=== PATIENT | male | born 1960 | race African-American/Black ===

== ENCOUNTER 2017-11-03 11:52 | Emergency (ER) | payer OTHER ==
[2017-11-03 12:38] LABS: #Eosinphils 0.2 thou/uL (0.0-0.7); #Lymphocytes 1.4 thou/uL (1.20-3.40); #Monocytes 0.6 thou/uL (0.11-0.59); %Basophils 0.3 % (0.0-1.0); %Eosinophils 2.9 % (0.0-10.0); %Lymphocytes 23.1 % (21.0-51.0); %Monocytes 8.9 % (0.0-10.0); %Neutrophils 64.7 % (42.0-75.0); Hemoglobin 10.9 g/dL (14.0-18.0); Mean Corpuscular HGB CONC 33.7 g/dL (32.0-36.0); Mean Corpuscular Hemoglobin 31.3 pg (27.0-31.0); Mean Corpuscular Volume 92.8 fl (80.0-94.0); Mean Platelet Volume 7.5 fL (7.4-10.4); Platelet Count 165 thou/uL (130-400); RBC Distribution Width 12.1 % (11.5-14.5); Red Blood Cell (RBC) Count 3.47 mill/uL (4.70-6.10); White Blood Cell (WBC) Count 6.2 thou/uL (4.8-10.8)
[2017-11-03 12:59] LABS: ALT (SGPT) 8 U/L (8-55); AST (SGOT) 10 U/L (5-34); Albumin 3.3 g/dL (3.5-5.0); Alkaline Phosphatase 72 U/L (40-150); Anion Gap 11 mmol/L (10-20); BUN (Urea Nitrogen) 22 mg/dL (8.4-25.7); Bilirubin, Total 0.3 mg/dL (0.2-1.2); CK (CPK) 54 U/L (30-200); Calc. Creatinine Clearance 0 mL/min (70-130); Calcium 8.2 mg/dL (7.8-10.44); Carbon Dioxide 22 mmol/L (22-29); Chloride 110 mmol/L (98-107); Estimated GFR-MDRD 72; Globulin 2.8 g/dL (2.4-3.5); Glucose 81 mg/dL (70-105); Lipase 71 U/L (8-78); Potassium 3.5 mmol/L (3.5-5.1); Protein, Total 6.1 g/dL (6.0-8.3); Sodium 139 mmol/L (136-145)
[2017-11-03 13:02] LABS: Troponin I Less than 0.010 ng/mL (< 0.028)
--- NOTE | 2017-11-03 13:20 | RAD ---
PORTABLE CHEST ONE VIEW: 11/03/2017 11;44 a.m. HISTORY: Altered mental status and dehydration. COMPARISON: 06/23/2016 FINDINGS: The heart size is prominent. The aorta is tortuous. The lungs are expanded without focal areas of c onsolidation, pneumothorax, larry pulmonary edema, or pleural effusions. IMPRESSION: No acute process. POS: [facility]
--- NOTE | 2017-11-03 13:31 | ULT ---
LEFT LOWER EXTREMITY VENOUS DUPLEX EXAM: HISTORY: Left leg pain and swelling. FINDINGS: Real-time color Doppler evaluation of the left lower extremity was performed from groin to calf. Thi s included evaluation of the common femoral, superficial and profunda femoral, saphenous, popliteal, and trifurcation veins. This shows a patent deep venous system. There is normal compressibility and augmentation. There is no evidence of DVT. IMPRESSION: No evidence of deep vein thrombosis of the left lower extremity. POS: [facility]
--- NOTE | 2017-11-21 15:43 | EKG ---
Test Reason : Blood Pressure : / mmHG Vent. Rate : 053 BPM Atrial Rate : 053 BPM P-R Int : 206 ms QRS Dur : 104 ms QT Int : 424 ms P-R-T Axes : 046 -36 027 degrees QTc Int : 397 ms Sinus bradycardia Left axis deviation Inferior infarct , age undetermined Anteroseptal infarct , age undetermined Abnormal ECG Confirmed by NEY CARSON, MICKI ([id number]), rewrite editor JAGDISH MCCAULEY ([id number]) on 11/21/2017 3:43:05 PM Referred By: Confirmed By:MICKI BREWSTER MD
== END 2017-11-03 13:30 | disposition home or self-care (01) ==
LOC: ERS 11:52
DX: E86.0 Dehydration (principal); I25.2 Old myocardial infarction; E11.9 Type 2 diabetes mellitus without complications; I25.10 Atherosclerotic heart disease of native coronary artery without angina pectoris; I10 Essential (primary) hypertension; F17.210 Nicotine dependence, cigarettes, uncomplicated; Z86.73 Personal history of transient ischemic attack (TIA), and cerebral infarction without residual deficits; Z79.82 Long term (current) use of aspirin; Z79.899 Other long term (current) drug therapy
CPT/HCPCS: 36415; 36416; 71045; 80053; 82553; 83690; 83880; 84484; 85025; 93005; 96360

== ENCOUNTER 2018-06-27 20:32 | Emergency (ER) | payer OTHER ==
[2018-06-27 21:14] LABS: #Basophils 0.1 thou/uL (0.0-0.2); #Eosinphils 0.3 thou/uL (0.0-0.7); #Lymphocytes 2.2 thou/uL (1.20-3.40); #Monocytes 0.6 thou/uL (0.11-0.59); #Neutrophils 2.7 thou/uL (1.40-6.50); %Basophils 1.1 % (0.0-1.0); %Eosinophils 4.3 % (0.0-10.0); %Lymphocytes 38.5 % (21.0-51.0); %Monocytes 9.8 % (0.0-10.0); %Neutrophils 46.4 % (42.0-75.0); Hemoglobin 12.7 g/dL (14.0-18.0); Mean Corpuscular HGB CONC 34.2 g/dL (32.0-36.0); Mean Corpuscular Hemoglobin 32.3 pg (27.0-31.0); Mean Corpuscular Volume 94.5 fL (78.0-98.0); Mean Platelet Volume 7.2 fL (7.4-10.4); Platelet Count 196 thou/uL (130-400); RBC Distribution Width 12.1 % (11.5-14.5); Red Blood Cell (RBC) Count 3.94 mill/uL (4.70-6.10); White Blood Cell (WBC) Count 5.8 thou/uL (4.8-10.8)
[2018-06-27 21:34] LABS: ALT (SGPT) 14 U/L (8-55); AST (SGOT) 15 U/L (5-34); Albumin 3.7 g/dL (3.5-5.0); Alkaline Phosphatase 80 U/L (40-150); Anion Gap 10 mmol/L (10-20); BUN (Urea Nitrogen) 16 mg/dL (8.4-25.7); Bilirubin, Total 0.3 mg/dL (0.2-1.2); CK (CPK) 100 U/L (30-200); Calc. Creatinine Clearance 0 mL/min (70-130); Calcium 9.1 mg/dL (7.8-10.44); Carbon Dioxide 26 mmol/L (22-29); Chloride 105 mmol/L (98-107); Estimated GFR-MDRD 64; Globulin 3.2 g/dL (2.4-3.5); Glucose 95 mg/dL (70-105); Lipase 92 U/L (8-78); Potassium 3.5 mmol/L (3.5-5.1); Protein, Total 6.9 g/dL (6.0-8.3); Sodium 137 mmol/L (136-145)
[2018-06-27 22:27] LABS: Bilirubin Negative (Negative); Blood, Urine Negative (Negative); Clarity CLEAR (Clear); Glucose, Urine (Dipstick) Negative (Negative); Leukocyte Negative (Negative); Nitrite Negative (Negative); Protein, Urine (Dipstick) Negative (Neg-Trace); Specific Gravity, Urine 1.009 (1.002-1.036); pH, Urine 5.5 (5.0-9.0)
--- NOTE | 2018-06-27 22:48 | RAD ---
RADIOGRAPH CHEST 1 VIEW: HISTORY: 58-year-old male with sudden onset of generalized weakness. FINDINGS: There are no air space densities, pulmonary edema, pneumothorax, or cardiomegaly. The lateral costop hrenic angles are sharp. IMPRESSION: No acute cardiopulmonary findings. omid POS: [facility]
--- NOTE | 2018-06-27 23:43 | CT ---
CT HEAD NONCONTRAST: History: TIA. Weakness. Comparison: 06-23-16 FINDINGS: There is no evidence of acute intracranial hemorrhage or infarct. Old right MCA infarct distribution encephalomalacia is similar in appearance to the prior study. Scattered chronic ischemic small vessel disease and diffuse cortical atrophy. There is no mass effect or shift of midline structures. Visual ized paranasal sinuses contain scattered mild mucosal thickening. IMPRESSION: Old right MCA infarct. Chronic ischemic small vessel disease. No acute intracranial abnormalities are demonstrated. POS: [facility]
== END 2018-06-28 00:02 | disposition home or self-care (01) ==
LOC: ERS 20:32
DX: R53.1 Weakness (principal); I25.2 Old myocardial infarction; I10 Essential (primary) hypertension; F17.210 Nicotine dependence, cigarettes, uncomplicated; Z79.899 Other long term (current) drug therapy
CPT/HCPCS: 36415; 70450; 71045; 80053; 81003; 82550; 83690; 84484; 85025; 93005

== ENCOUNTER 2018-06-28 14:49 | Outpatient (CLI) | payer OTHER ==
--- NOTE | 2018-06-28 16:47 | RAD ---
LUMBAR SPINE RADIOGRAPHS: INDICATIONS: Low back pain after fall. FINDINGS: There is mild multilevel disk degenerative disease. Vertebral body heights are preserved. Spinal al ignment is within normal limits. SI joints are normal appearing. IMPRESSION: Mild spondylosis of the lumbar spine. POS: [facility]
== END 2018-06-28 14:50 | disposition home or self-care (01) ==
LOC: BICRAD 14:49
PROVIDERS: ATTEND Family Medicine
DX: M54.5 Low back pain (principal); M47.816 Spondylosis without myelopathy or radiculopathy, lumbar region
CPT/HCPCS: 72100

== ENCOUNTER 2018-09-09 12:18 | Emergency (ER) | payer OTHER ==
[2018-09-09 13:00] LABS: #Eosinphils 0.2 thou/uL (0.0-0.7); #Lymphocytes 1.3 thou/uL (1.20-3.40); #Monocytes 0.5 thou/uL (0.11-0.59); #Neutrophils 3.2 thou/uL (1.40-6.50); %Basophils 0.8 % (0.0-1.0); %Eosinophils 3.9 % (0.0-10.0); %Lymphocytes 25.2 % (21.0-51.0); %Monocytes 9.8 % (0.0-10.0); %Neutrophils 60.4 % (42.0-75.0); Hemoglobin 11.6 g/dL (14.0-18.0); Mean Corpuscular HGB CONC 34.2 g/dL (32.0-36.0); Mean Corpuscular Hemoglobin 32.1 pg (27.0-31.0); Mean Platelet Volume 7.3 fL (7.4-10.4); Platelet Count 212 thou/uL (130-400); RBC Distribution Width 12.3 % (11.5-14.5); White Blood Cell (WBC) Count 5.3 thou/uL (4.8-10.8)
--- NOTE | 2018-09-09 13:13 | RAD ---
RADIOGRAPH CHEST 1 VIEW: HISTORY: 58-year-old male with chest pain. FINDINGS: There are no air space densities, pulmonary edema, pneumothorax, or cardiomegaly. The lateral costop hrenic angles are sharp. IMPRESSION: No acute cardiopulmonary findings. jn [] POS: [facility]
[2018-09-09 13:31] LABS: ALT (SGPT) 9 U/L (8-55); AST (SGOT) 9 U/L (5-34); Albumin 3.7 g/dL (3.5-5.0); Alkaline Phosphatase 86 U/L (40-150); Anion Gap 13 mmol/L (10-20); BUN (Urea Nitrogen) 22 mg/dL (8.4-25.7); Bilirubin, Total 0.6 mg/dL (0.2-1.2); Calc. Creatinine Clearance 0 mL/min (70-130); Calcium 8.8 mg/dL (7.8-10.44); Carbon Dioxide 22 mmol/L (22-29); Chloride 109 mmol/L (98-107); Estimated GFR-MDRD 50; Globulin 3.1 g/dL (2.4-3.5); Glucose 121 mg/dL (70-105); Lipase 56 U/L (8-78); Potassium 3.6 mmol/L (3.5-5.1); Protein, Total 6.8 g/dL (6.0-8.3); Sodium 140 mmol/L (136-145)
[2018-09-09 17:16] LABS: Troponin I 0.018 ng/mL (< 0.028)
--- NOTE | 2018-09-11 14:21 | EKG ---
Test Reason : Blood Pressure : / mmHG Vent. Rate : 065 BPM Atrial Rate : 065 BPM P-R Int : 202 ms QRS Dur : 086 ms QT Int : 386 ms P-R-T Axes : 062 -34 041 degrees QTc Int : 401 ms Normal sinus rhythm Left axis deviation Minimal voltage criteria for LVH, may be normal variant Inferior infarct , age undetermined Anteroseptal infarct , age undetermined Abnormal ECG No change from 06/27/2018 Confirmed by VERA ANDRADE DO ([id number]), international editorial producer MARKUS WATERS ([id number]) on 09/11/2018 2:20:48 PM Referred By: Confirmed By:VERA ANDRADE DO
== END 2018-09-09 18:12 | disposition home or self-care (01) ==
LOC: ERS 12:18
DX: R07.2 Precordial pain (principal); I25.2 Old myocardial infarction; E11.9 Type 2 diabetes mellitus without complications; I25.10 Atherosclerotic heart disease of native coronary artery without angina pectoris; F17.210 Nicotine dependence, cigarettes, uncomplicated; Z86.73 Personal history of transient ischemic attack (TIA), and cerebral infarction without residual deficits; Z79.82 Long term (current) use of aspirin; Z79.899 Other long term (current) drug therapy
CPT/HCPCS: 36415; 71045; 80053; 83690; 83880; 84484; 85025; 93005; 99406

== ENCOUNTER 2019-04-05 08:31 | Emergency (ER) | payer OTHER ==
--- NOTE | 2019-04-05 08:58 | RAD ---
XR Ribs Lt>=2 View STANDARD HISTORY: Fall with left rib pain. COMPARISON: None. FINDINGS: There are no signs of pleural effusion or pneumothorax. There is an area of subtle lucency along the anterior aspect of the 10th rib this is equivocal as there is some bony overlap but potentially a subtle fracture. IMPRESSION: Questionable nondisplaced anterior 10th rib fracture, clinical correlation as to area of patient's pain.
[2019-04-05] MEDS ORDERED: Ketorolac Tromethamine 30 MG/ML VIAL ONE (09:35)
[2019-04-05] MEDS ORDERED: HYDROcodone/Acetaminophen 7.5/325 mg Tablet ONE (09:49)
== END 2019-04-05 11:00 | disposition home or self-care (01) ==
LOC: ERS 08:31
DX: S22.32XA Fracture of one rib, left side, initial encounter for closed fracture (principal); I25.2 Old myocardial infarction; I25.10 Atherosclerotic heart disease of native coronary artery without angina pectoris; E11.9 Type 2 diabetes mellitus without complications; I10 Essential (primary) hypertension; F17.210 Nicotine dependence, cigarettes, uncomplicated; Z79.899 Other long term (current) drug therapy; Z86.73 Personal history of transient ischemic attack (TIA), and cerebral infarction without residual deficits; Z79.82 Long term (current) use of aspirin; Z79.84 Long term (current) use of oral hypoglycemic drugs; W22.8XXA Striking against or struck by other objects, initial encounter; Y92.002 Bathroom of unspecified non-institutional (private) residence as the place of occurrence of the external cause
CPT/HCPCS: 93005; 96372; J1885

== ENCOUNTER 2020-10-20 07:06 | Emergency (ER) | payer OTHER ==
[2020-10-20] MEDS ORDERED: HYDROcodone/Acetaminophen 10/325 mg Tablet ONE (09:30)
[2020-10-20 10:52] LABS: #Basophils 0.1 thou/uL (0.0-0.2); #Eosinphils 0.1 thou/uL (0.0-0.7); #Lymphocytes 1.2 thou/uL (1.20-3.40); #Monocytes 0.7 thou/uL (0.11-0.59); #Neutrophils 5.9 thou/uL (1.40-6.50); %Basophils 0.7 % (0.0-1.0); %Eosinophils 0.9 % (0.0-10.0); %Lymphocytes 14.7 % (21.0-51.0); %Monocytes 9.3 % (0.0-10.0); %Neutrophils 74.3 % (42.0-75.0); Hemoglobin 13.1 g/dL (14.0-18.0); Mean Corpuscular HGB CONC 33.3 g/dL (32.0-36.0); Mean Corpuscular Hemoglobin 31.3 pg (27.0-31.0); Mean Platelet Volume 7.4 fL (7.4-10.4); Platelet Count 201 thou/uL (130-400); RBC Distribution Width 12.8 % (11.5-14.5); Red Blood Cell (RBC) Count 4.17 mill/uL (4.70-6.10); White Blood Cell (WBC) Count 7.9 thou/uL (4.8-10.8)
[2020-10-20 11:16] LABS: ALT (SGPT) 14 U/L (8-55); AST (SGOT) 12 U/L (5-34); Albumin 3.5 g/dL (3.4-4.8); Alkaline Phosphatase 177 U/L (40-110); Anion Gap 15 mmol/L (10-20); BUN (Urea Nitrogen) 14 mg/dL (8.4-25.7); Bilirubin, Total 0.6 mg/dL (0.2-1.2); Calc. Creatinine Clearance 0 mL/min (70-130); Calcium 9.2 mg/dL (7.8-10.44); Carbon Dioxide 26 mmol/L (23-31); Chloride 103 mmol/L (98-107); Globulin 3.5 g/dL (2.4-3.5); Glucose 89 mg/dL (80-115); Potassium 3.9 mmol/L (3.5-5.1); Sodium 140 mmol/L (136-145)
[2020-10-20] MEDS ORDERED: Iopamidol-370 76% 500 ML 1 ML ONE (12:47)
== END 2020-10-20 12:57 | disposition home or self-care (01) ==
LOC: ERS 07:06
DX: S22.42XA Multiple fractures of ribs, left side, initial encounter for closed fracture (principal); J43.9 Emphysema, unspecified; J98.11 Atelectasis; E11.9 Type 2 diabetes mellitus without complications; I10 Essential (primary) hypertension; I25.2 Old myocardial infarction; I25.10 Atherosclerotic heart disease of native coronary artery without angina pectoris; F17.210 Nicotine dependence, cigarettes, uncomplicated; Z86.73 Personal history of transient ischemic attack (TIA), and cerebral infarction without residual deficits; Z79.899 Other long term (current) drug therapy; W18.30XA Fall on same level, unspecified, initial encounter
CPT/HCPCS: 36415; 71046; 71275; 80053; 85025; 85379; Q9967

== ENCOUNTER 2021-06-05 08:20 | Day surgery (SDC) | payer OTHER ==
[2021-06-03 14:45] VITALS: BMI 20.7
[2021-06-05 09:09] LABS: Prothrombin Time 12.9 sec (12.0-14.7)
[2021-06-05 09:10] LABS: PTT 28.3 sec (22.9-36.1)
[2021-06-05 11:02] LABS: SARS-CoV-2 NAA Rapid Test Not Detected (NotDetected)
[2021-06-05 11:25] VITALS: TEMP 98.1
[2021-06-05 11:35] VITALS: BP 182/81
== END 2021-06-05 10:45 | disposition home or self-care (01) ==
LOC: CT 08:20
PROVIDERS: ATTEND Internal Medicine Nephrology
DX: N18.30 Chronic kidney disease, stage 3 unspecified (principal); R80.9 Proteinuria, unspecified; Z53.09 Procedure and treatment not carried out because of other contraindication; Z20.822 Contact with and (suspected) exposure to COVID-19; Z79.899 Other long term (current) drug therapy
CPT/HCPCS: 85610; 85730; U0002

== ENCOUNTER 2021-06-27 12:01 | Emergency (ER) | payer OTHER ==
[2021-06-27 14:53] LABS: #Eosinphils 0.1 thou/uL (0.0-0.7); #Lymphocytes 1.6 thou/uL (1.20-3.40); #Monocytes 0.9 thou/uL (0.11-0.59); #Neutrophils 4.4 thou/uL (1.40-6.50); %Basophils 0.4 % (0.0-1.0); %Eosinophils 1.5 % (0.0-10.0); %Lymphocytes 22.6 % (21.0-51.0); %Monocytes 12.3 % (0.0-10.0); %Neutrophils 63.2 % (42.0-75.0); Hemoglobin 15.2 g/dL (14.0-18.0); Mean Corpuscular HGB CONC 33.4 g/dL (32.0-36.0); Mean Corpuscular Hemoglobin 31.5 pg (27.0-31.0); Mean Corpuscular Volume 94.4 fL (78.0-98.0); Mean Platelet Volume 7.4 fL (7.4-10.4); Platelet Count 281 thou/uL (130-400); RBC Distribution Width 12.1 % (11.5-14.5); Red Blood Cell (RBC) Count 4.82 mill/uL (4.70-6.10); White Blood Cell (WBC) Count 6.9 thou/uL (4.8-10.8)
[2021-06-27 15:12] LABS: ALT (SGPT) 10 U/L (8-55); AST (SGOT) 13 U/L (5-34); Albumin 4.2 g/dL (3.4-4.8); Alkaline Phosphatase 108 U/L (40-110); Anion Gap 12 mmol/L (10-20); BUN (Urea Nitrogen) 16 mg/dL (8.4-25.7); Bilirubin, Total 0.5 mg/dL (0.2-1.2); Calc. Creatinine Clearance 0 mL/min (70-130); Calcium 10.1 mg/dL (7.8-10.44); Carbon Dioxide 29 mmol/L (23-31); Chloride 101 mmol/L (98-107); Globulin 4.1 g/dL (2.4-3.5); Glucose 69 mg/dL (80-115); Potassium 4.6 mmol/L (3.5-5.1); Protein, Total 8.3 g/dL (5.8-8.1); Sodium 137 mmol/L (136-145)
[2021-06-27] MEDS ORDERED: hydrALAZINE 25 MG TAB ONE (16:51)
[2021-06-27] MEDS ORDERED: Carvedilol 6.25 MG TAB PO SCH (17:00)
== END 2021-06-27 17:12 | disposition home or self-care (01) ==
LOC: ERS 12:01
DX: I10 Essential (primary) hypertension (principal); I25.2 Old myocardial infarction; I25.10 Atherosclerotic heart disease of native coronary artery without angina pectoris; Z86.73 Personal history of transient ischemic attack (TIA), and cerebral infarction without residual deficits; E11.9 Type 2 diabetes mellitus without complications; F17.210 Nicotine dependence, cigarettes, uncomplicated; Z79.899 Other long term (current) drug therapy
CPT/HCPCS: 36415; 71045; 80053; 84484; 85025; 93005; 94760

== ENCOUNTER 2022-09-08 13:45 | Emergency (ER) | payer OTHER ==
[2022-09-08 14:24] LABS: Hemoglobin 14.1 g/dL (14.0-18.0); Mean Corpuscular HGB CONC 34.6 g/dL (32.0-36.0); Mean Corpuscular Hemoglobin 32.5 pg (27.0-31.0); Mean Corpuscular Volume 93.9 fl (78.0-98.0); Mean Platelet Volume 8.2 fL (7.4-10.4); Platelet Count 192 10x3/uL (130-400); RBC Distribution Width 12.3 % (11.5-14.5); Red Blood Cell (RBC) Count 4.33 mill/uL (4.70-6.10); White Blood Cell (WBC) Count 6.9 10x3/uL (4.8-10.8)
[2022-09-08 14:42] LABS: Eosinophils 1 % (0-10); Lymphocytes 19 % (21-51); MDiff Complete? YES; Monocytes 3 % (0-10); Neutrophil 72 % (42-75); Platelet Morphology Comment Appears Adequate; Polychromasia SLIGHT = 2-3 cells (100X) (0-2/hpf); Reactive Lymphocytes 5 % (0-10)
[2022-09-08 14:59] LABS: ALT (SGPT) 9 U/L (8-55); AST (SGOT) 9 U/L (5-34); Albumin 3.7 g/dL (3.4-4.8); Alkaline Phosphatase 102 U/L (40-110); Anion Gap 14 mmol/L (10-20); BUN (Urea Nitrogen) 18 mg/dL (8.4-25.7); Bilirubin, Total 0.4 mg/dL (0.2-1.2); Calc. Creatinine Clearance 0 mL/min (70-130); Calcium 9.3 mg/dL (7.8-10.44); Carbon Dioxide 24 mmol/L (23-31); Chloride 106 mmol/L (98-107); Estimated GFR 43; Globulin 3.5 g/dL (2.4-3.5); Glucose 100 mg/dL (80-115); Lipase 82 U/L (8-78); Potassium 4.9 mmol/L (3.5-5.1); Protein, Total 7.2 g/dL (5.8-8.1); Sodium 139 mmol/L (136-145)
== END 2022-09-08 15:55 | disposition home or self-care (01) ==
LOC: ERS 13:45
DX: R07.89 Other chest pain (principal); I10 Essential (primary) hypertension; E11.9 Type 2 diabetes mellitus without complications; I25.2 Old myocardial infarction; I25.10 Atherosclerotic heart disease of native coronary artery without angina pectoris; F17.210 Nicotine dependence, cigarettes, uncomplicated; Z86.73 Personal history of transient ischemic attack (TIA), and cerebral infarction without residual deficits; Z79.899 Other long term (current) drug therapy
CPT/HCPCS: 36415; 71045; 80053; 83690; 84484; 85025; 93005

== ENCOUNTER 2023-07-22 11:54 | Observation (INO) | payer OTHER ==
[2023-07-22 13:48] LABS: #Monocytes 0.9 thou/uL (0.11-0.59); #Neutrophils 3.4 thou/uL (1.40-6.50); %Basophils 0.6 % (0.0-1.0); %Eosinophils 0.2 % (0.0-10.0); %Lymphocytes 10.5 % (21.0-51.0); %Neutrophils 70.5 % (42.0-75.0); Hematocrit 37.4 % (42.0-52.0); Hemoglobin 12.9 g/dL (14.0-18.0); Mean Corpuscular HGB CONC 34.5 g/dL (32.0-36.0); Mean Corpuscular Hemoglobin 30.7 pg (27.0-31.0); Platelet Count 203 10x3/uL (130-400); RBC Distribution Width 13.2 % (11.5-14.5); White Blood Cell (WBC) Count 4.8 10x3/uL (4.8-10.8)
[2023-07-22 15:06] LABS: ALT (SGPT) 10 U/L (8-55); AST (SGOT) 18 U/L (5-34); Albumin 4.1 g/dL (3.4-4.8); Alkaline Phosphatase 86 U/L (40-110); Anion Gap 15 mmol/L (10-20); BUN (Urea Nitrogen) 34 mg/dL (8.4-25.7); Bilirubin, Total 0.4 mg/dL (0.2-1.2); Calc. Creatinine Clearance 0 mL/min (70-130); Calcium 9.3 mg/dL (7.8-10.44); Carbon Dioxide 18 mmol/L (23-31); Chloride 107 mmol/L (98-107); Estimated GFR 30; Globulin 3.7 g/dL (2.4-3.5); Glucose 68 mg/dL (80-115); Potassium 4.3 mmol/L (3.5-5.1); Protein, Total 7.8 g/dL (5.8-8.1); Sodium 136 mmol/L (136-145)
[2023-07-22 15:20] LABS: Troponin I 0.063 ng/mL (< 0.028)
[2023-07-22] MEDS ORDERED: Methocarbamol 500 MG TAB PO PRN (16:30)
[2023-07-22] MEDS ORDERED: Senokot S 8.6-50 MG TAB PO PRN (16:32)
[2023-07-22] MEDS ORDERED: Acetaminophen 325 MG TAB PO PRN (16:32)
[2023-07-22] MEDS ORDERED: Ondansetron PF 4 MG/2 ML Vial IVP PRN (16:32)
[2023-07-22] MEDS ORDERED: Calcium Carbonate 500 MG ChewTAB PO PRN (16:32)
[2023-07-22] MEDS ORDERED: Aspirin Chewable 81 MG TAB ONE (16:33)
[2023-07-22] MEDS ORDERED: Benzonatate 100 MG CAP PO PRN (18:28)
[2023-07-22 18:31] LABS: Troponin I 0.083 ng/mL (< 0.028)
[2023-07-22] MEDS ORDERED: methylPREDNISolone Sod Succ/PF 125 MG/2 ML VIAL ONE (18:34)
[2023-07-22] MEDS: Sodium Chloride 0.9% 1,000 ML IV SCH (18:38)
[2023-07-22] MEDS: Sodium Chloride 0.9% 500 ML IV SCH (18:38)
[2023-07-22] MEDS: methylPREDNISolone Sod Succ/PF 125 MG/2 ML VIAL IVP SCH (18:38)
[2023-07-22] MEDS ORDERED: Ipratropium/Albuterol 3 ML NEB NEB PRN (18:41)
[2023-07-22 20:56] LABS: Troponin I 0.089 ng/mL (< 0.028)
[2023-07-22] MEDS ORDERED: Doxycycline 100 MG CAP ONE (21:39)
[2023-07-22] MEDS ORDERED: Heparin 5,000 UNITS/ML VIAL ONE (21:39)
[2023-07-22] MEDS ORDERED: Metoprolol Tartrate 50 MG TAB ONE (21:40)
[2023-07-22] MEDS ORDERED: hydrALAZINE 25 MG TAB ONE (21:41)
[2023-07-22] MEDS ORDERED: guaiFENesin ER 600 MG TAB ONE (21:41)
[2023-07-22] MEDS ORDERED: traZODone HCl 50 MG TAB ONE (21:42)
[2023-07-22] MEDS: hydrALAZINE 25 MG TAB PO SCH (22:20)
[2023-07-22] MEDS: Doxycycline 100 MG CAP PO SCH (22:20)
[2023-07-22] MEDS: Heparin 5,000 UNITS/ML VIAL SC SCH (22:20)
[2023-07-22] MEDS: guaiFENesin/DM ER PO SCH (22:21)
[2023-07-22] MEDS: traZODone HCl 50 MG TAB PO SCH (22:21)
[2023-07-22] MEDS: Metoprolol Tartrate 50 MG TAB PO SCH (22:21)
[2023-07-23] MEDS: Isosorbide Mononitrate 20 MG TAB PO SCH (00:43)
[2023-07-23] MEDS: NIFEdipine XL 60 MG ER.TAB PO SCH (00:44)
[2023-07-23 04:54] LABS: #Monocytes 0.2 thou/uL (0.11-0.59); #Neutrophils 2.5 thou/uL (1.40-6.50); %Basophils 0.3 % (0.0-1.0); %Lymphocytes 14.2 % (21.0-51.0); %Monocytes 7.1 % (0.0-10.0); %Neutrophils 78.1 % (42.0-75.0); Hematocrit 33.8 % (42.0-52.0); Hemoglobin 11.5 g/dL (14.0-18.0); Mean Corpuscular Hemoglobin 30.8 pg (27.0-31.0); Mean Corpuscular Volume 90.6 fl (78.0-98.0); Platelet Count 209 10x3/uL (130-400); RBC Distribution Width 13.2 % (11.5-14.5); Red Blood Cell (RBC) Count 3.73 mill/uL (4.70-6.10); White Blood Cell (WBC) Count 3.3 10x3/uL (4.8-10.8)
[2023-07-23 05:00] LABS: Hemoglobin A1c 5.1 % (4.0-6.0)
[2023-07-23 05:17] LABS: ALT (SGPT) 10 U/L (8-55); AST (SGOT) 18 U/L (5-34); Albumin 3.7 g/dL (3.4-4.8); Alkaline Phosphatase 74 U/L (40-110); Anion Gap 15 mmol/L (10-20); BUN (Urea Nitrogen) 44 mg/dL (8.4-25.7); Bilirubin, Total 0.5 mg/dL (0.2-1.2); Calc. Creatinine Clearance 0 mL/min (70-130); Calcium 8.8 mg/dL (7.8-10.44); Carbon Dioxide 20 mmol/L (23-31); Chloride 106 mmol/L (98-107); Cholesterol 198 mg/dl (< 200 Desired); Estimated GFR 29; Globulin 3.3 g/dL (2.4-3.5); Glucose 198 mg/dL (80-115); HDL Cholesterol 50 mg/dL (>60 Neg Risk); LDL Cholesterol, Calculated 139 mg/dL; Magnesium 2.3 mg/dL (1.6-2.6); Potassium 4.6 mmol/L (3.5-5.1); Sodium 136 mmol/L (136-145); Triglycerides 45 mg/dL (Less than 150)
[2023-07-23] MEDS ORDERED: Doxycycline 100 MG CAP ONE (08:57)
[2023-07-23] MEDS ORDERED: Aspirin 81 mg Enteric Coated Tablet ONE (08:57)
[2023-07-23] MEDS ORDERED: Clopidogrel Bisulfate 75 MG TAB ONE (08:57)
[2023-07-23] MEDS ORDERED: predniSONE 20 MG TAB ONE (08:58)
[2023-07-23] MEDS ORDERED: hydrALAZINE 25 MG TAB ONE (08:58)
[2023-07-23] MEDS ORDERED: Heparin 5,000 UNITS/ML VIAL ONE (08:58)
[2023-07-23] MEDS ORDERED: Metoprolol Tartrate 50 MG TAB ONE (08:58)
[2023-07-23] MEDS ORDERED: Atorvastatin Calcium 40 MG TAB ONE (08:58)
[2023-07-23] MEDS ORDERED: Aspirin 325 mg Enteric Coated Tablet PO SCH (09:00)
[2023-07-23] MEDS: Aspirin 81 mg Enteric Coated Tablet PO SCH (09:56)
[2023-07-23] MEDS: predniSONE 20 MG TAB PO SCH (09:56)
[2023-07-23] MEDS: Clopidogrel Bisulfate 75 MG TAB PO SCH (09:57)
[2023-07-23] MEDS: Atorvastatin Calcium 40 MG TAB PO SCH (09:57)
[2023-07-23] MEDS: Sodium Chloride 0.9% 500 ML IV SCH (10:56)
[2023-07-23 14:20] LABS: Anion Gap 15 mmol/L (10-20); BUN (Urea Nitrogen) 49 mg/dL (8.4-25.7); Calc. Creatinine Clearance 31 mL/min (70-130); Carbon Dioxide 21 mmol/L (23-31); Chloride 108 mmol/L (98-107); Estimated GFR 30; Glucose 145 mg/dL (80-115); Potassium 4.6 mmol/L (3.5-5.1); Sodium 139 mmol/L (136-145)
[2023-07-23 15:43] LABS: SARS-CoV-2 E Target Negative; SARS-CoV-2 N2 Target Negative; SARS-CoV-2 NAA Rapid Test Not Detected (NotDetected); SARS-CoV-2 RdRP gene Negative
[2023-07-23 16:53] VITALS: BP 135/62; TEMP 98.3
[2023-07-26] MEDS ORDERED: FLU VACC QS2023-24(6MOS UP)/PF 60 MCG/0.5 ML SYRINGE IM ONE (09:00)
== END 2023-07-23 19:20 | disposition home or self-care (01) ==
LOC: SUATTDRO 11:54 → ERS 11:54 → ERHOLD 16:31 → 2SW 07-23 12:52
PROVIDERS: ADMIT Internal Medicine; ATTEND Internal Medicine
DX: J44.1 Chronic obstructive pulmonary disease with (acute) exacerbation (principal); E78.5 Hyperlipidemia, unspecified; I12.9 Hypertensive chronic kidney disease with stage 1 through stage 4 chronic kidney disease, or unspecified chronic kidney disease; M18.9 Osteoarthritis of first carpometacarpal joint, unspecified; N17.9 Acute kidney failure, unspecified; I25.10 Atherosclerotic heart disease of native coronary artery without angina pectoris; F17.210 Nicotine dependence, cigarettes, uncomplicated; R07.89 Other chest pain; Z79.02 Long term (current) use of antithrombotics/antiplatelets; Z79.82 Long term (current) use of aspirin; Z79.899 Other long term (current) drug therapy; Z86.73 Personal history of transient ischemic attack (TIA), and cerebral infarction without residual deficits; Z79.51 Long term (current) use of inhaled steroids
CPT/HCPCS: 36415; 71045; 76770; 80053; 80061; 83036; 83735; 83880; 84484; 85025; 93005; 93306; 96372; 96374; G0378; J1644; J2930; J7030; J7050; J7512; U0002